=== PATIENT | female | born 1945 | race African-American/Black ===

== ENCOUNTER → 2025-05-03 12:36 | Outpatient (REF) | payer MEDICARE, OTHER, SELFPAY ==
--- NOTE | 2025-05-03 14:05 | PTCARENOTE ---
#20 maura placed Left AC. 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 INT d/c'd.
== END ==
LOC: RCS 12:36
PROVIDERS: ATTENDING PHYSICIAN Nurse Practitioner; FAMILY PHYSICIAN Family Medicine
DX: I10 Essential (primary) hypertension (principal); Q21.12 Patent foramen ovale
CPT/HCPCS: 93306